=== PATIENT | female | born 1975 | race Caucasian/White ===

== ENCOUNTER 2017-09-21 22:14 | Emergency (ER) | payer OTHER ==
[~2017-09-21] VITALS: Ht 157.5 cm; Wt 113.4 kg
[~2017-09-21 22:14] MED LIST: AZITHROMYCIN 2250 MG PO; BACTRIM DS TAB1 EACH PO; BACTROBAN22 GM TP; DUONEB 2.5-0.5 M3 ML INH; FLEXERIL PO; FOLIC ACID; HIBICLENS120 ML TP; HOME RESPIRATORY TX MISCELL; MINIPRIN81 MG; MOBIC15 MG PO; NORFLEX100 MG PO; PERCOCET 5-3251 EACH PO; PREDNISONE 20 M20 MG PO; PREDNISONE50 MG PO; PRENATAL
[2017-09-21] MEDS ORDERED: ALDACTONE50 MG (22:41)
[2017-09-21] MEDS ORDERED: CLEOCIN HCL300 MG PO (22:55)
[2017-09-21 23:05] VITALS: BP 126/60
[2018-03-25] MEDS ORDERED: NORCO 5-325 TA1 EACH PO (10:52)
== END 2017-09-21 23:06 | disposition home or self-care (01) ==
LOC: M.ERS 22:14
DX: L03.115 Cellulitis of right lower limb (principal); Z87.442 Personal history of urinary calculi; Z88.0 Allergy status to penicillin; Z77.22 Contact with and (suspected) exposure to environmental tobacco smoke (acute) (chronic)

== ENCOUNTER 2017-10-27 16:38 | Emergency (ER) | payer OTHER ==
[~2017-10-27] VITALS: Ht 157.5 cm; Wt 136.1 kg
[~2017-10-27 16:38] MED LIST changes: +ALDACTONE50 MG; +CLEOCIN HCL300 MG PO
[2017-10-27 16:54] VITALS: BP 121/74
[2018-03-25] MEDS ORDERED: NORCO 5-325 TA1 EACH PO (10:52)
== END 2017-10-27 18:34 | disposition home or self-care (01) ==
LOC: M.ERS 16:38
DX: S50.01XA Contusion of right elbow, initial encounter (principal); Z87.442 Personal history of urinary calculi; Z88.0 Allergy status to penicillin; Z77.22 Contact with and (suspected) exposure to environmental tobacco smoke (acute) (chronic); W18.2XXA Fall in (into) shower or empty bathtub, initial encounter; Y93.89 Activity, other specified; Y92.091 Bathroom in other non-institutional residence as the place of occurrence of the external cause; Y99.8 Other external cause status

== ENCOUNTER 2018-01-25 17:15 | Emergency (ER) | payer OTHER ==
[~2018-01-25] VITALS: Ht 160 cm; Wt 133.8 kg
[2018-01-25 19:46] VITALS: BP 133/76
[2018-03-25] MEDS ORDERED: NORCO 5-325 TA1 EACH PO (10:52)
== END 2018-01-25 19:47 | disposition home or self-care (01) ==
LOC: M.ERS 17:15
DX: S93.492A Sprain of other ligament of left ankle, initial encounter (principal); Z87.442 Personal history of urinary calculi; Z88.0 Allergy status to penicillin; Z77.22 Contact with and (suspected) exposure to environmental tobacco smoke (acute) (chronic); Y30.XXXA Falling, jumping or pushed from a high place, undetermined intent, initial encounter; Y93.39 Activity, other involving climbing, rappelling and jumping off; Y92.89 Other specified places as the place of occurrence of the external cause; Y99.8 Other external cause status

== ENCOUNTER → 2018-03-25 | Day surgery (SDC) | payer OTHER ==
[~2018-03-25] MED LIST changes: +NORCO 5-325 TA1 EACH PO
[2018-03-25 08:55] LABS: HEMATOCRIT 43.2 % (37.0-47.0); HEMOGLOBIN 13.8 gm/dL (12.0-15.0)
--- NOTE | 2018-03-31 08:45 | OP ---
[facility] [address] [place] [address] OPERATIVE REPORT Name: RAGHAVENDRA NOVA Room: [facility]#: [id number] Admission: 03/25/18 Attend Phys: Tunde Landry II Discharge: Date of : 77 Report #: [id number] THIS REPORT FOR: //name// CC: Merari Landry DATE OF SERVICE: 03/25/2018 PREOPERATIVE DIAGNOSIS: Left knee anterior cruciate ligament tear. POSTOPERATIVE DIAGNOSIS: 1. Left knee anterior cruciate ligament tear. 2. Anterior horn medial meniscus tear. 3. 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 PROCEDURES PERFORMED: 1. Left knee arthroscopic surgery with ACL reconstruction with allograft. 2. Partial medial meniscectomy. 3. Abrasion chondroplasty medial femoral condyle down to bleeding bone. SURGEON: Tunde Landry III, DO. DYE CAN OPERATOR: LAY Palma ANESTHESIA: Per operative record. ESTIMATED BLOOD LOSS: Minimal. ANTIBIOTICS: Per operative record. DRAINS: None. COMPLICATIONS: None/ DISPOSITION: Stable to Recovery Room. DESCRIPTION OF PROCEDURE: The patient was taken to the Operative Suite, placed supine on the operative table and given appropriate anesthesia. The patient's left extremity was sterilely prepped and draped in a well-padded knee arthroscopic castellano. Surgery began by midline portal incision. The arthroscope was advanced in the joint. There was found to be anterior horn medial meniscus tear. This was debrided utilizing basket and shaver back to stable margins. There was also noted to be an osteochondral defect on the anterior medial margin of the femur with loose ____ cartilage and a small osteochondral defect. Utilizing a shaver, this was debrided down to bleeding bone and then smoothed [address] [address] OPERATIVE REPORT Name: RAGHAVENDRA NOVA Room: [facility]#: [id number] Admission: 03/25/18 Attend Phys: Tnude Landry II Discharge: Date of : 77 Report #: [id number] utilizing electrocautery wand in appropriate fashion with Coblation technology. The ACL was shown to have significant tear with a stump at the tibial side. This was debrided using a shaver and ablator wand back to the tibial footprint and then around to the posterior margin of the femur. ____ graft was then thawed and sized. The retrodrill was then introduced and retrodrill was then drilled out through the tibia in an appropriate fashion. Over the top guide with guide pin was then placed up to the posterior aspect of the femur. This was then flexed and rotated to the most lateral margin and a guide pin was placed out to the lateral cortex of the femur. It was then reamed in appropriate fashion and excess bone and cartilage was then removed using a shaver. This was then copiously irrigated. The graft was then placed over the guide pin and transferred on the Endobutton up and throughout the tibia. It was then secured into position in appropriate fashion. Using multiple cycles of flexion and extension, the graft was seated than in the tibia and then final compression screw was then placed up into the tibia. Final irrigation was performed. Final evaluation showed no evidence of screw penetration to the joint and excellent stability of the graft throughout anterior and posterior drawer testing. Knee was ____, closed with a 4-0 nylon and Vicryl stitch. Sterile dressing was applied. The patient was transferred to Recovery Room in stable condition. Counts were correct throughout the procedure. <ELECTRONICALLY SIGNED> By: Tunde Landry II, DO 03/31/18 0845 [id number] Landry II DO /nt
== END | disposition home or self-care (01) ==
LOC: M.SUR 06:59
PROVIDERS: Orthopaedic Surgery
DX: S83.512A Sprain of anterior cruciate ligament of left knee, initial encounter (principal); S83.242A Other tear of medial meniscus, current injury, left knee, initial encounter; M94.262 Chondromalacia, left knee; M21.862 Other specified acquired deformities of left lower leg; X58.XXXA Exposure to other specified factors, initial encounter; Y93.89 Activity, other specified; Y92.89 Other specified places as the place of occurrence of the external cause; Y99.8 Other external cause status; Z88.0 Allergy status to penicillin; Z79.891 Long term (current) use of opiate analgesic; Z79.899 Other long term (current) drug therapy; Z98.890 Other specified postprocedural states

== ENCOUNTER 2019-02-11 16:01 | Emergency (ER) | payer OTHER ==
[~2019-02-11] VITALS: Ht 157.5 cm; Wt 136.1 kg
[2019-02-11] MEDS ORDERED: HYDROCHLOROTHIA25 M2 PO (16:20)
[2019-02-11] MEDS ORDERED: TROKENDI XR100 MG PO (16:21)
[2019-02-11] MEDS ORDERED: VIIBRYD20 MG PO (16:21)
[2019-02-11] MEDS ORDERED: ETODOLAC 400 M400 M1 PO (16:22)
[2019-02-11] MEDS ORDERED: ZANAFLEX4 MG PO (18:42)
[2019-02-11 18:54] VITALS: BP 128/58
== END 2019-02-11 18:54 | disposition home or self-care (01) ==
LOC: M.ERS 16:01
DX: S16.1XXA Strain of muscle, fascia and tendon at neck level, initial encounter (principal); R07.89 Other chest pain; F41.9 Anxiety disorder, unspecified; Z77.22 Contact with and (suspected) exposure to environmental tobacco smoke (acute) (chronic); Z88.0 Allergy status to penicillin; Z87.442 Personal history of urinary calculi; V89.2XXA Person injured in unspecified motor-vehicle accident, traffic, initial encounter; Y92.89 Other specified places as the place of occurrence of the external cause; Y93.89 Activity, other specified; Y99.8 Other external cause status